=== PATIENT | female | born 1985 | race Two or more races ===

== ENCOUNTER 2019-08-26 17:33 | Emergency (ER) | payer MEDICAID, OTHER ==
[~2019-08-26] VITALS: Ht 165.1 cm; Wt 92.1 kg
[2019-08-26 17:43] VITALS: BP 130/84
== END 2019-08-26 21:33 | disposition left against medical advice (07) ==
LOC: ER 17:33
DX: J02.9 Acute pharyngitis, unspecified (principal); Z53.21 Procedure and treatment not carried out due to patient leaving prior to being seen by health care provider